=== PATIENT | female | born 1965 | race African-American/Black ===

== ENCOUNTER 2018-09-30 12:52 | Observation (INO) | payer BC, OTHER ==
--- NOTE | 2018-09-30 15:11 | PDOC ---
History of Present Illness - General Chief Complaint: Pain, Acute Stated Complaint: SENT BY PCP Time Seen by Provider: 09/30/18 14:09 History Source: Patient Exam Limitations: No Limitations - History of Present Illness Initial Comments: 09/30/18 14:58 53 yo female PMH of HTN, hypothyroidism, asthma and chronic back pain (takes naproxen for pain as needed, last use was prior to ) presents to the ED for generalized weakness, dizziness, dark tarry well formed stools and 2 episodes of bloody vomiting since 09/26. Pt states she has had some worsening epigastric pain over the past 2 weeks made worse right after eating. Pain is non radiating, well localized. Pt denies taking iron supplements. Denies F/C/N/V , changes in urinary habits, SOB or CP Past History - Past Medical History Allergies/Adverse Reactions: Allergies Allergy/AdvReac Type Severity Reaction Status Date / Time No Known Allergies Allergy Verified 09/30/18 13:22 Home Medications: Ambulatory Orders Albuterol Sulfate Inhaler - [Ventolin Hfa Inhaler -] 1 - 2 inh PO QID PRN Cyclobenzaprine HCl [Flexeril -] 10 mg PO TID PRN 09/30/18 Levothyroxine Sodium [Synthroid] mcg PO DAILY 09/30/18 Lisinopril [Prinivil] mg PO DAILY 09/30/18 Zolpidem Tartrate [Ambien] 10 mg PO HS 09/30/18 traMADol HCL [Ultram] 50 mg PO Q6H PRN 09/30/18 - Suicide/Smoking/Psychosocial Hx Smoking History: Unknown if ever smoked Review of Systems - Review of Systems Constitutional: No: Chills, Fever Respiratory: No: Shortness of Breath Cardiac (ROS): No: Chest Pain ABD/GI: Yes: Vomiting (2 bloody episodes), Other (black tarry stools for 4 days) . No: Constipated, Diarrhea : No: Burning, Dysuria, Flank Pain, Hematuria Musculoskeletal: No: Back Pain Neurological: Yes: Weakness (generalized). No: Headache, Numbness, Paresthesia , Unsteady Gait, Ataxia *Physical Exam - Vital Signs Last Vital Signs Temp Pulse Resp BP Pulse Ox 98.3 F 73 18 126/74 100 09/30/18 13:22 09/30/18 13:22 09/30/18 13:22 09/30/18 13:22 09/30/18 13:22 - Physical Exam General Appearance: Yes: Nourished, Appropriately Dressed. No: Apparent Distress HEENT: positive: EOMI Respiratory/Chest: positive: Lungs Clear, Normal Breath Sounds. negative: Accessory Muscle Use, Crackles, Rhonchi, Wheezing Cardiovascular: positive: Regular Rhythm, Regular Rate, S1, S2. negative: Edema , JVD, Murmur Vascular Pulses: Dorsalis-Pedis (R): 3+, Doralis-Pedis (L): 3+ Gastrointestinal/Abdominal: positive: Normal Bowel Sounds, Flat, Soft. negative : Distended, Guarding, Rebound, Tenderness Rectal Exam: positive: normal rectal tone, melena, heme positive stool. negative: hemorrhoids Musculoskeletal: negative: CVA Tenderness Extremity: positive: Normal Capillary Refill Integumentary: positive: Normal Color, Dry, Warm. negative: Cyanotic, Pale Neurologic: positive: Fully Oriented, Alert, Normal Mood/Affect, Normal Response , Motor Strength 5/5 Moderate Sedation - Procedure Monitoring Vital Signs: Procedure Monitoring Vital Signs Temperature 98.3 F 09/30/18 13:22 Pulse Rate 73 09/30/18 13:22 Respiratory Rate 18 09/30/18 13:22 Blood Pressure 126/74 09/30/18 13:22 O2 Sat by Pulse Oximetry (%) 100 09/30/18 13:22 ED Treatment Course - LABORATORY CBC & Chemistry Diagram: 09/30/18 15:00 09/30/18 15:00 Medical Decision Making - Medical Decision Making 09/30/18 15:43 53 yo female presents to the ED for black tarry stools and 2 episodes vomiting blood since 09/26 and epigastric pain after eating for 2 weeks pt admits to weakness and dizziness vitals: WNL Labs h/h: 05/26 + stool oclt NAD AOX3 DDX includes but is not limited to: peptic ulcer bleed, duodenal ulcer, CA 09/30/18 15:53 Pt resting comfortably while in the ED given protonix IV 09/30/18 16:[address] Ames who states pt is hemodynamically stable and able to be observed in the hospital and If EGD/colonoscopy is required it can be performed Wednesday. Will access in the ED Will admit pt to hospitalist for repeat h/h and obs *DC/Admit/Observation/Transfer Diagnosis at time of Disposition: Upper gastrointestinal bleed - Discharge Dispostion Condition at time of disposition: Stable Decision to Admit order: Yes - Referrals - Patient Instructions - Post Discharge Activity
--- NOTE | 2018-09-30 15:18 | PDOC ---
Attending Attestation - HPI HPI: This patient is a 53 year old female, with PMHx of HTN, Hypothyroidism, asthma , chronic back pain, who presents to the ED with 5 days of generalized weakness , melena and hematemesis. Patient states that since 09/26/18, she has had well- formed dark, tarry stools. She also has had 2 episodes of hematemesis. She also endorses 2-3 weeks of epigastric pain that is worse after eating right away. She came from urgent care and her stool occult was positive for blood. She states that she takes Naproxen weekly for her chronic back pain. 09/30/18 15:48 - Medical Decision Making Left a message for Dr. Zepeda for GI consult. 09/30/18 15:57 <Jami Kraft - Last Filed: 09/30/18 15:56> - Resident Resident Name: Emmett Olmos - ED Attending Attestation I have performed the following: I have examined & evaluated the patient, The case was reviewed & discussed with the resident, I agree w/resident's findings & plan, Exceptions are as noted - Physicial Exam PE: 09/30/18 15:59 Vitals: Triage Vital signs reviewed General Appearance: no acute distress, well nourished well developed, Head: Atraumatic, Neck: Supple;No Nucal rigidity Chest Wall: Nontender Cardiac: Regular rate and rhythym, no murmurs, no rubs, no gallops, Lungs: Clear to auscultation bilateral, good air movement bilaterally, Abdomen: Soft, non distended, normal bowel sounds, non tender to palpation Extremities: Full range of motion to all extremities, no cyanosis, clubbing, or edema Skin: Warm and dry, no rashes or lesions, no rash, no petechiae Psych: normal mood, normal affect - Medical Decision Making This patient is a 53 year old female, with PMHx of HTN, Hypothyroidism, asthma , chronic back pain, who presents to the ED with 5 days of generalized weakness , melena and hematemesis. Patient states that since 09/26/18, she has had well- formed dark, tarry stools. She also has had 2 episodes of hematemesis. She also endorses 2-3 weeks of epigastric pain that is worse after eating right away. She came from urgent care and her stool occult was positive for blood. She states that she takes Naproxen weekly for her chronic back pain. History examination consistent with upper GI bleed Likely secondary to patient's naproxen use. In symptomatology concerning for worsening anemia lightheadedness and dizziness we will admit to medicine for GI consultation and further management hemoglobin currently 8 but unknown what her baseline is. <John Peng - Last Filed: 09/30/18 16:01>
[2018-09-30 15:23] LABS: BASO % 0.8 % (0-2.0); EOS % 1.3 % (0-4.5); HEMATOCRIT 23.4 % (32.4-45.2); LYMPH % 36.5 % (8-40); MCH 32.2 pg (25.7-33.7); MCHC 33.9 g/dl (32.0-36.0); MEAN CELL VOLUME 94.7 fl (80-96); MEAN PLT VOLUME 8.9 fl (7.5-11.1); NEUT % 55.4 % (42.8-82.8); PLATELET COUNT 257 K/MM3 (134-434); RBC 2.48 M/mm3 (3.60-5.2); WHITE BLOOD COUNT 6.9 K/mm3 (4.0-10.0)
[2018-09-30] MEDS ORDERED: PANTOPRAZOLE SODIUM 40 MG VIAL IVPUSH ONE (15:46)
[2018-09-30 16:05] LABS: ALBUMIN 3.6 g/dl (3.4-5.0); ALK PHOS 70 U/L (45-117); ANION GAP 6 MMOL/L (8-16); BILIRUBIN,TOTAL 0.2 mg/dL (0.2-1); BLOOD UREA NITROGEN 14 mg/dL (7-18); CALCIUM 8.9 mg/dL (8.5-10.1); CHLORIDE 108 mmol/L (98-107); CO2 28 mmol/L (21-32); CREATININE 0.8 mg/dL (0.55-1.3); GLUCOSE,RANDOM 100 mg/dL (74-106); SGOT/AST 21 U/L (15-37); SGPT/ALT 30 U/L (13-61); SODIUM 142 mmol/L (136-145); TOT PROT 6.4 g/dl (6.4-8.2)
[2018-09-30 16:11] LABS: INR 0.9 (0.83-1.09); PROTHROMBIN TIME (PATIENT) 10.6 SEC (9.7-13.0)
[2018-09-30 16:14] LABS: ACTIVATED PTT 32.1 SECONDS (25.2-36.5)
[2018-09-30] MEDS ORDERED: PANTOPRAZOLE SODIUM 40 MG/100 ML BAG IVPB ONE ×2 (17:01→17:03)
[2018-09-30] MEDS ORDERED: PANTOPRAZOLE SODIUM 40 MG VIAL ONE (17:01)
[2018-09-30] MEDS: PANTOPRAZOLE SODIUM 80 MG in SODIUM CHLORIDE 100 ML IVPB SCH (17:26)
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
[2018-09-30] MEDS ORDERED: ALBUTEROL SO4 8 GM HFA INHALER IH PRN (18:30)
--- NOTE | 2018-09-30 18:39 | PN ---
Teaching Attending Note Name of Resident: Brandon Hayes ATTENDING PHYSICIAN STATEMENT I saw and evaluated the patient. I reviewed the resident's note and discussed the case with the resident. I agree with the resident's findings and plan as documented. CC: vomiting blood and dark stool HPI: She is a 53 Y/O F W obesity Chronic back pain and chronic NSAID use, non Etoh abuse, no HX of other previouse GIB and tendency to bleeding, P/W 1 month of intermittent Fresh blood in vomit and dark tary stool per rectum, last episode 4 days ago with no current active bleeding. PhEX: she is a morbidly obese F in no distress Last Vital Signs Temp Pulse Resp BP Pulse Ox 98.2 F 83 18 132/80 98 09/30/18 17:39 09/30/18 17:39 09/30/18 17:39 09/30/18 17:39 09/30/18 17:39 MMM No ocular discharge No nasal discharge CVS:S1S2 CTAB Abd:BS+ NT/ND EXT: no edema no sign of liver disease in exam Labs: CBCD WBC 6.9 K/mm3 (4.0-10.0) 09/30/18 15:00 RBC 2.48 M/mm3 (3.60-5.2) L 09/30/18 15:00 Hgb 8.0 GM/dL (10.7-15.3) L 09/30/18 15:00 Hct 23.4 % (32.4-45.2) L 09/30/18 15:00 MCV 94.7 fl (80-96) 09/30/18 15:00 MCHC 33.9 g/dl (32.0-36.0) 09/30/18 15:00 RDW 14.0 % (11.6-15.6) 09/30/18 15:00 Plt Count 257 K/MM3 (134-434) 09/30/18 15:00 MPV 8.9 fl (7.5-11.1) 09/30/18 15:00 CMP Sodium 142 mmol/L (136-145) 09/30/18 15:00 Potassium 4.0 mmol/L (3.5-5.1) 09/30/18 15:00 Chloride 108 mmol/L (98-107) H 09/30/18 15:00 Carbon Dioxide 28 mmol/L (21-32) 09/30/18 15:00 Anion Gap 6 MMOL/L (8-16) L 09/30/18 15:00 BUN 14 mg/dL (7-18) 09/30/18 15:00 Creatinine 0.8 mg/dL (0.55-1.3) 09/30/18 15:00 Creat Clearance w eGFR > 60 (>60) 09/30/18 15:00 Random Glucose 100 mg/dL (74-106) 09/30/18 15:00 Calcium 8.9 mg/dL (8.5-10.1) 09/30/18 15:00 Total Bilirubin 0.2 mg/dL (0.2-1) 09/30/18 15:00 AST 21 U/L (15-37) 09/30/18 15:00 ALT 30 U/L (13-61) 09/30/18 15:00 Alkaline Phosphatase 70 U/L (45-117) 09/30/18 15:00 Total Protein 6.4 g/dl (6.4-8.2) 09/30/18 15:00 Albumin 3.6 g/dl (3.4-5.0) 09/30/18 15:00 A&P: GIB: most likely in the setting of NSAID abuse: will get 2 IV lines, will get anohter CBC tonight and if stable no need for morning labs will C/W PPI GGT Will keep NPO lkely to get EGD tomorrow pending GI eval Counseled about the effects of chronic NSAID use and GIB Will C/W rest of home medication DVT ppxl scd Dispo: home pending EGD and GI recs
[2018-09-30] MEDS ORDERED: traMADol HCL 50 MG TABLET PO ONE (18:45)
--- NOTE | 2018-09-30 18:53 | CON.GI ---
Consult Consult Specialty:: GI Referred by:: Hospitalist Service Reason for Consultation:: Melena - History of Present Illness Chief Complaint: Melena History of Present Illness: 53F admitted through [facility] ER for evaluation of melena. She states that she had dark bowel movements on 09/26 with an episode of coffee ground emesis. Dark bowel movements persisted. She went to urgent care 09/29 and they advised she go to ER. The lives in the [place] but came to [facility] for the first time because every other hospital in the city was too busy. In the ER Hgb was 8. She was normotensive with normal pulse. it is unclear is orthostatics were checked. She was noted to be guaiac positive. She denies a history of anemia. her last dark BM was this morning. She described fatigue and lightheadedness over the last few days. She takes naproxyn 2 tabs every other day on average, for back and various joint pains. She believes that she had an EGD and colonoscopy in the past that were normal. When I was evaluating her she had just finished eating janneth crackers because she was hungry. She received protonix 40mg IVPB x 1 in ER. She denies history of liver disease. There is no family history of colorectal cancer or other GI malignancy. - History Source History Provided By: Patient Limitations to Obtaining History: No Limitations - Past Medical History TOOTH POLISHER: Yes: Other (Sciatica) Cardio/Vascular: Yes: HTN Pulmonary: Yes: Asthma Endocrine: Yes: Hypothyroidism - Past Surgical History Past Surgical History: Yes: Additional Surgical History: B/L Knee surgeries, b/l rotaor cuff repair - Alcohol/Substance Use Hx Alcohol Use: Yes (socially) History of Substance Use: reports: None - Smoking History Smoking history: Current every day smoker Have you smoked in the past 12 months: Yes - Social History Usual Living Arrangement: Alone ADL: Independent 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[place] History of Recent Travel: No Home Medications - Allergies Allergies/Adverse Reactions: Allergies Allergy/AdvReac Type Severity Reaction Status Date / Time No Known Allergies Allergy Verified 09/30/18 13:22 - Home Medications Home Medications: Ambulatory Orders Albuterol Sulfate Inhaler - [Ventolin Hfa Inhaler -] 1 - 2 inh PO QID PRN Cyclobenzaprine HCl [Flexeril -] 10 mg PO TID PRN 09/30/18 Levothyroxine Sodium [Synthroid] 150 mcg PO DAILY 09/30/18 Lisinopril [Prinivil] 10 mg PO DAILY 09/30/18 Zolpidem Tartrate [Ambien] 10 mg PO HS 09/30/18 traMADol HCL [Ultram] 50 mg PO Q6H PRN 09/30/18 Family Disease History - Family Disease History Family Disease History: Other: Father (: 91: unclear causes), Mother (Alive : 86: healthy), Brother (1, : [place]), Sister (2, healthy), Son (1, healthy) , Daughter (1, healthy) Other Family History: No family history of colorectal cancer or other GI malignancy Review of Systems - Review of Systems Cardiovascular: denies: Chest Pain Respiratory: denies: SOB Gastrointestinal: reports: Melena, Nausea, Vomiting Blood (Coffee ground vomiting 09/26). denies: Abdominal Pain, Constipation, Dysphagia, Rectal Bleeding Physical Exam-GI Vital Signs: Vital Signs Temperature 09/30/18 19:30 Pulse Rate 78 09/30/18 19:30 Respiratory Rate 18 09/30/18 19:30 Blood Pressure 132/68 09/30/18 19:30 O2 Sat by Pulse Oximetry (%) 97 on RA 09/30/18 19:30 Constitutional: Yes: Calm Eyes: No: Sclera Icterus Cardiovascular: Yes: Regular Rate and Rhythm. No: Murmur Respiratory: Yes: CTA Bilaterally Gastrointestinal Inspection: Yes: Scars (low pelvic surgical scar). 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 present: no external lesions, no masses, loose dark brown stool, guaiac +) Edema: No (No LE edema) Neurological: Yes: Alert, Oriented Labs: CBC, BMP 09/30/18 15:00 09/30/18 15:00 INR, PTT INR 0.90 (0.83-1.09) 09/30/18 15:00 Hepatic Panel Total Bilirubin 0.2 mg/dL (0.2-1) 09/30/18 15:00 AST 21 U/L (15-37) 09/30/18 15:00 ALT 30 U/L (13-61) 09/30/18 15:00 Alkaline Phosphatase 70 U/L (45-117) 09/30/18 15:00 Albumin 3.6 g/dl (3.4-5.0) 09/30/18 15:00 Problem List - Problems (1) Upper gastrointestinal bleed Assessment/Plan: Suspect that her chronic NSAID use will be the culprit, likley potentiating PUD. I discussed this with the patient. I explained that to evaluate further and to exclude alternate etiologies, EGD can be undertaken. We discussed potential risks of the procedure like but not limited to bleeding perforation requiring surgery to repair, infection, sedation medication effects all of which could be potentially life threatening. She has agreed to the procedure, the timing of which will be determined by her clinical course. if she remains stable, likely on 10/03. If need be this can always be done sooner as dictated by clinical course. The fact that her BUN is normal is a good sign. hopefully this was a remote bleed that has run it's own course: For now NPO except meds with small sips water. If H.H IV hydration PPI drip: protonix @ 8mg/hr Advised avoidance of NSAIDs moving forward Monitor serial CBC and for active GI bleeding. If active bleeding / change in hemodynamics transfer to ICU Dr. Acevedo will be covering the weekend Code(s): K92.2 - GASTROINTESTINAL HEMORRHAGE, UNSPECIFIED
[2018-09-30] MEDS ORDERED: MELATONIN 5 MG TABLETS PO ONE (21:00)
[2018-09-30] MEDS: SODIUM CHLORIDE 1,000 ML IV SCH (21:02)
[2018-09-30 22:00] LABS: HEMOGLOBIN 7.1 GM/dL (10.7-15.3); MCH 32.1 pg (25.7-33.7); MCHC 33.9 g/dl (32.0-36.0); MEAN CELL VOLUME 94.6 fl (80-96); MEAN PLT VOLUME 8.8 fl (7.5-11.1); PLATELET COUNT 243 K/MM3 (134-434); RBC 2.22 M/mm3 (3.60-5.2); RDW 14.1 % (11.6-15.6); WHITE BLOOD COUNT 6.6 K/mm3 (4.0-10.0)
[2018-09-30 22:56] VITALS: BMI 36.6
[2018-10-01 00:54] LABS: HEMATOCRIT 20.5 % (32.4-45.2); MCH 31.8 pg (25.7-33.7); MCHC 33.7 g/dl (32.0-36.0); MEAN CELL VOLUME 94.3 fl (80-96); MEAN PLT VOLUME 9.2 fl (7.5-11.1); PLATELET COUNT 232 K/MM3 (134-434); RBC 2.18 M/mm3 (3.60-5.2); WHITE BLOOD COUNT 6.5 K/mm3 (4.0-10.0)
[2018-10-01 01:04] LABS: HEMOGLOBIN 6.9 GM/dL (10.7-15.3)
[2018-10-01 09:31] LABS: BASO % 0.4 % (0-2.0); EOS % 1.7 % (0-4.5); HEMATOCRIT 25.4 % (32.4-45.2); HEMOGLOBIN 8.4 GM/dL (10.7-15.3); LYMPH % 44.7 % (8-40); MCH 31.1 pg (25.7-33.7); MEAN CELL VOLUME 94.1 fl (80-96); MEAN PLT VOLUME 8.7 fl (7.5-11.1); MONO % 6.7 % (3.8-10.2); NEUT % 46.5 % (42.8-82.8); PLATELET COUNT 223 K/MM3 (134-434); RDW 14.6 % (11.6-15.6); WHITE BLOOD COUNT 6.2 K/mm3 (4.0-10.0)
[2018-10-01 09:56] LABS: ANION GAP 6 MMOL/L (8-16); BLOOD UREA NITROGEN 13 mg/dL (7-18); CALCIUM 8.7 mg/dL (8.5-10.1); CHLORIDE 111 mmol/L (98-107); CO2 28 mmol/L (21-32); GLUCOSE,RANDOM 93 mg/dL (74-106); POTASSIUM 3.9 mmol/L (3.5-5.1); SODIUM 145 mmol/L (136-145)
[2018-10-01] MEDS ORDERED: LEVOTHYROXINE NA 88 MCG TABLET (FP) PO SCH (10:00)
[2018-10-01] MEDS: PANTOPRAZOLE SODIUM 80 MG in SODIUM CHLORIDE 100 ML IVPB SCH ×2 (11:34→20:22)
[2018-10-01] MEDS ORDERED: LEVOTHYROXINE NA 100 MCG TABLET (FP) ONE ×2 (11:37→22:24)
[2018-10-01] MEDS ORDERED: LEVOTHYROXINE NA 50 MCG TABLET (FP) ONE ×2 (11:37→22:24)
[2018-10-01] MEDS: LEVOTHYROXINE 100 MCG, LEVOTHYROXINE 50 MCG PO SCH (11:38)
[2018-10-01] MEDS: traMADol HCL 50 MG TABLET PO PRN ×2 (11:41→22:26)
--- NOTE | 2018-10-01 12:11 | PN ---
GI Progress Note Subjective: GI NOte ( covering [facility] GI service) : No vomiting. No melena; Hungry - Objective Vital Signs: Vital Signs Temperature 98.4 F 10/01/18 06:00 Pulse Rate 80 10/01/18 06:00 Respiratory Rate 20 10/01/18 06:00 Blood Pressure 140/85 10/01/18 06:00 O2 Sat by Pulse Oximetry (%) 98 10/01/18 04:37 Laboratory Tests 09/30/18 09/30/18 10/01/18 15:00 21:30 00:30 Hgb 8.0 L 7.1 L 6.9 L* BUN Creatinine 10/01/18 10/01/18 09:00 09:00 Hgb 8.4 L BUN 13 Creatinine 1.0 Constitutional: Calm ...Auscultate: Yes: Normoactive Bowel Sounds ...Palpate: Yes: Soft, Other (nontender) Labs: CBC, BMP 10/01/18 09:00 10/01/18 09:00 INR, PTT INR 0.90 (0.83-1.09) 09/30/18 15:00 Assessment/Plan Suspect NSAID ulcer or gastritis related bleeding Continue PPI Clear liquids For EGD Wednesday Problem List - Problems (1) Anemia associated with acute blood loss Code(s): D62 - ACUTE POSTHEMORRHAGIC ANEMIA (2) Melena Code(s): K92.1 - MELENA (3) Upper gastrointestinal bleed Code(s): K92.2 - GASTROINTESTINAL HEMORRHAGE, UNSPECIFIED
--- NOTE | 2018-10-01 13:27 | EKG ---
Test Reason : Blood Pressure : / mmHG Vent. Rate : 079 BPM Atrial Rate : 079 BPM P-R Int : 144 ms QRS Dur : 076 ms QT Int : 418 ms P-R-T Axes : 060 040 074 degrees QTc Int : 479 ms SINUS RHYTHM WITH PREMATURE ATRIAL COMPLEXES NONSPECIFIC T WAVE ABNORMALITY PROLONGED QT ABNORMAL ECG NO PREVIOUS ECGS AVAILABLE Confirmed by JOSSY GOODMAN MD ([id number]) on 10/01/2018 1:26:52 PM Referred By: Confirmed By:JOSSY GOODMAN MD
[2018-10-01 14:02] LABS: HEMATOCRIT 24.5 % (32.4-45.2); HEMOGLOBIN 8.8 GM/dL (10.7-15.3); MCH 33.3 pg (25.7-33.7); MCHC 36.1 g/dl (32.0-36.0); MEAN CELL VOLUME 92.2 fl (80-96); MEAN PLT VOLUME 8.5 fl (7.5-11.1); PLATELET COUNT 245 K/MM3 (134-434); RBC 2.66 M/mm3 (3.60-5.2); RDW 14.5 % (11.6-15.6); WHITE BLOOD COUNT 6.6 K/mm3 (4.0-10.0)
--- NOTE | 2018-10-01 15:59 | PN ---
Physical Exam: SUBJECTIVE: Patient seen and examined. She has no complaints at this time. states that is hungry OBJECTIVE: Vital Signs Period Temp Pulse Resp BP Sys/Corona Pulse Ox Last 24 Hr 98.0 F-98.9 F 74-85 18-20 129-144/60-85 97-98 GENERAL: The patient is awake, alert, and fully oriented, in no acute distress. HEAD: Normal with no signs of trauma. EYES: PERRL, extraocular movements intact, sclera anicteric, conjunctiva clear. No ptosis. ENT: Ears normal, nares patent, oropharynx clear without exudates, moist mucous membranes. NECK: Trachea midline, full range of motion, supple. LUNGS: Breath sounds equal, clear to auscultation bilaterally, no wheezes, no crackles, no accessory muscle use. HEART: Regular rate and rhythm, S1, S2 without murmur, rub or gallop. ABDOMEN: Soft, nontender, nondistended, normoactive bowel sounds, no guarding, no rebound, no hepatosplenomegaly, no masses. EXTREMITIES: 2+ pulses, warm, well-perfused, no edema. NEUROLOGICAL: Cranial nerves II through XII grossly intact. Normal speech, gait not observed. PSYCH: Normal mood, normal affect. SKIN: Warm, dry, normal turgor, no rashes or lesions noted Laboratory Results - last 24 hr 09/30/18 09/30/18 09/30/18 15:00 15:00 15:00 WBC RBC Hgb Hct MCV MCH MCHC RDW Plt Count MPV Absolute Neuts (auto) Neutrophils % Lymphocytes % Monocytes % Eosinophils % Basophils % Nucleated RBC % PT with INR 10.60 INR 0.90 PTT (Actin FS) 32.1 Sodium 142 Potassium 4.0 Chloride 108 H Carbon Dioxide 28 Anion Gap 6 L BUN 14 Creatinine 0.8 Creat Clearance w eGFR > 60 Random Glucose 100 Calcium 8.9 Total Bilirubin 0.2 AST 21 ALT 30 Alkaline Phosphatase 70 Total Protein 6.4 Albumin 3.6 Stool Occult Blood Blood Type O POSITIVE Antibody Screen Negative Crossmatch See Detail 09/30/18 09/30/18 09/30/18 15:00 17:45 21:30 WBC 6.6 RBC 2.22 L Hgb 7.1 L Hct 21.0 L MCV 94.6 MCH 32.1 MCHC 33.9 RDW 14.1 Plt Count 243 MPV 8.8 Absolute Neuts (auto) Neutrophils % Lymphocytes % Monocytes % Eosinophils % Basophils % Nucleated RBC % PT with INR INR PTT (Actin FS) Sodium Potassium Chloride Carbon Dioxide Anion Gap BUN Creatinine Creat Clearance w eGFR Random Glucose Calcium Total Bilirubin AST ALT Alkaline Phosphatase Total Protein Albumin Stool Occult Blood Positive Positive Blood Type Antibody Screen Crossmatch 10/01/18 10/01/18 10/01/18 00:30 02:08 09:00 WBC 6.5 RBC 2.18 L Hgb 6.9 L* Hct 20.5 L MCV 94.3 MCH 31.8 MCHC 33.7 RDW 14.0 Plt Count 232 MPV 9.2 Absolute Neuts (auto) Neutrophils % Lymphocytes % Monocytes % Eosinophils % Basophils % Nucleated RBC % PT with INR INR PTT (Actin FS) Sodium 145 Potassium 3.9 Chloride 111 H Carbon Dioxide 28 Anion Gap 6 L BUN 13 Creatinine 1.0 Creat Clearance w eGFR 58.00 Random Glucose 93 Calcium 8.7 Total Bilirubin AST ALT Alkaline Phosphatase Total Protein Albumin Stool Occult Blood Blood Type O POSITIVE Antibody Screen Crossmatch See Detail 10/01/18 10/01/18 09:00 13:40 WBC 6.2 6.6 RBC 2.70 L 2.66 L Hgb 8.4 L 8.8 L Hct 25.4 L D 24.5 L MCV 94.1 92.2 MCH 31.1 33.3 MCHC 33.0 36.1 H RDW 14.6 14.5 Plt Count 223 245 MPV 8.7 8.5 Absolute Neuts (auto) 2.9 Neutrophils % 46.5 Lymphocytes % 44.7 H D Monocytes % 6.7 Eosinophils % 1.7 Basophils % 0.4 Nucleated RBC % 0 PT with INR INR PTT (Actin FS) Sodium Potassium Chloride Carbon Dioxide Anion Gap BUN Creatinine Creat Clearance w eGFR Random Glucose Calcium Total Bilirubin AST ALT Alkaline Phosphatase Total Protein Albumin Stool Occult Blood Blood Type Antibody Screen Crossmatch Active Medications Generic Name Dose Route Start Last Admin Trade Name Freq PRN Reason Stop Dose Admin Albuterol Sulfate 2 puff 09/30/18 18:30 Ventolin Hfa Inhaler - IH Q6H PRN ASTHMA Pantoprazole Sodium 80 mg/ 100 mls @ 10 mls/hr 09/30/18 16:30 10/01/18 11:34 Sodium Chloride IVPB 10 mls/hr Q10H CHRISTOPHER Administration 8 MG/HR Sodium Chloride 1,000 mls @ 100 mls/hr 09/30/18 18:30 09/30/18 21:02 Normal Saline - IV 100 mls/hr ASDIR CHRISTOPHER Administration Levothyroxine Sodium 100 mcg/ 150 mcg 10/01/18 07:00 10/01/18 11:38 Levothyroxine Sodium 50 mcg PO 150 mcg DAILY@0700 CHRISTOPHER Administration Tramadol HCl 50 mg 10/01/18 11:18 10/01/18 11:41 Ultram - PO 50 mg Q6H PRN Administration PAIN LEVEL 6-10 ASSESSMENT/PLAN: 53 Y/O F W obesity, hypothyroidism, chronic back pain on NSAIDS, P/W 2 episodes of hematemesis and melena on 09/27 which has now resolved. GIB: no more episodes, CBC stable,VS stable, on PPI drip, plan for EGD on Wednesday , will keep on PPI drip for now and start on clear liquid diet. Hypothyroidism: C/W home levothyroxin back pain: will give tramadol at this time will need further PT and out patient management. DVT PPX: SCD Diet: clear liquid at this time Dispo: home likely on Wednesday after the EGD Visit type - Emergency Visit Emergency Visit: No - New Patient This patient is new to me today: No - Critical Care Critical Care patient: No - Discharge Referral Referred to [facility] Med P.C.: No
[2018-10-01] MEDS: SODIUM CHLORIDE 1,000 ML IV SCH (18:30)
[2018-10-01] MEDS ORDERED: PT OWN MED DRAWER 7, Y5N ONE (18:32)
[2018-10-02] MEDS ORDERED: MELATONIN 5 MG TABLETS ONE (01:51)
[2018-10-02] MEDS ORDERED: MELATONIN 5 MG TABLETS PO ONE ×2 (02:15→21:12)
[2018-10-02] MEDS: PANTOPRAZOLE SODIUM 80 MG in SODIUM CHLORIDE 100 ML IVPB SCH ×3 (06:07→19:20)
[2018-10-02] MEDS: LEVOTHYROXINE 100 MCG, LEVOTHYROXINE 50 MCG PO SCH (06:08)
[2018-10-02] MEDS: SODIUM CHLORIDE 1,000 ML IV SCH ×2 (06:08→19:19)
[2018-10-02 07:40] LABS: BASO % 0.4 % (0-2.0); EOS % 2.3 % (0-4.5); HEMATOCRIT 25.4 % (32.4-45.2); HEMOGLOBIN 8.2 GM/dL (10.7-15.3); LYMPH % 41.3 % (8-40); MCH 30.7 pg (25.7-33.7); MCHC 32.4 g/dl (32.0-36.0); MEAN CELL VOLUME 94.7 fl (80-96); MEAN PLT VOLUME 8.6 fl (7.5-11.1); MONO % 7.3 % (3.8-10.2); NEUT % 48.7 % (42.8-82.8); PLATELET COUNT 226 K/MM3 (134-434); RBC 2.68 M/mm3 (3.60-5.2); RDW 14.6 % (11.6-15.6); WHITE BLOOD COUNT 6.9 K/mm3 (4.0-10.0)
--- NOTE | 2018-10-02 10:54 | PN ---
GI Progress Note Subjective: GI NOte ( covering [facility] GI service): NO melena , in fact no BM . N o pain. Feels very gassy and bloated. - Objective Vital Signs: Vital Signs Temperature 98.2 F 10/02/18 05:51 Pulse Rate 76 10/02/18 05:51 Respiratory Rate 20 10/02/18 05:51 Blood Pressure 149/98 10/02/18 05:51 O2 Sat by Pulse Oximetry (%) 98 10/02/18 04:00 Laboratory Tests 10/01/18 10/01/18 10/02/18 00:30 13:40 07:30 Hgb 6.9 L* 8.8 L 8.2 L Constitutional: Anxious ...Auscultate: Yes: Hyperactive Bowel Sounds ...Palpate: Yes: Soft, Other (nontender) Labs: CBC, BMP 10/02/18 07:30 10/01/18 09:00 INR, PTT INR 0.90 (0.83-1.09) 09/30/18 15:00 Problem List - Problems (1) Anemia associated with acute blood loss Assessment/Plan: Bleeding appears to have stopped. Will given Mylanta to help get her bowels moving Code(s): D62 - ACUTE POSTHEMORRHAGIC ANEMIA (2) Melena Code(s): K92.1 - MELENA (3) Upper gastrointestinal bleed Code(s): K92.2 - GASTROINTESTINAL HEMORRHAGE, UNSPECIFIED (4) Constipated Code(s): K59.00 - CONSTIPATION, UNSPECIFIED
--- NOTE | 2018-10-02 10:54 | PN ---
Physical Exam: SUBJECTIVE: Patient seen and examined, she is in no distress, she has had no more episode of GIB or any other GI complaints since 4 days ago, still on PPI drip OBJECTIVE: Vital Signs Period Temp Pulse Resp BP Sys/Corona Pulse Ox Last 24 Hr 97.8 F-98.2 F 68-76 20-20 149-163/89-98 98-98 GENERAL: The patient is awake, alert, and fully oriented, in no acute distress. morbidly obese HEAD: Normal with no signs of trauma. EYES: PERRL, extraocular movements intact, sclera anicteric, conjunctiva clear. No ptosis. ENT: Ears normal, nares patent, oropharynx clear without exudates, moist mucous membranes. NECK: Trachea midline, full range of motion, supple. LUNGS: Breath sounds equal, clear to auscultation bilaterally, no wheezes, no crackles, no accessory muscle use. HEART: Regular rate and rhythm, S1, S2 without murmur, rub or gallop. ABDOMEN: Soft, nontender, nondistended, normoactive bowel sounds, no guarding, no rebound, no hepatosplenomegaly, no masses. EXTREMITIES: 2+ pulses, warm, well-perfused, no edema. NEUROLOGICAL: Cranial nerves II through XII grossly intact. Normal speech, gait not observed. PSYCH: Normal mood, normal affect. SKIN: Warm, dry, normal turgor, no rashes or lesions noted Laboratory Results - last 24 hr 10/01/18 10/02/18 13:40 07:30 WBC 6.6 6.9 RBC 2.66 L 2.68 L Hgb 8.8 L 8.2 L Hct 24.5 L 25.4 L MCV 92.2 94.7 MCH 33.3 30.7 MCHC 36.1 H 32.4 RDW 14.5 14.6 Plt Count 245 226 MPV 8.5 8.6 Absolute Neuts (auto) 3.4 Neutrophils % 48.7 Lymphocytes % 41.3 H Monocytes % 7.3 Eosinophils % 2.3 Basophils % 0.4 Nucleated RBC % 0 Active Medications Generic Name Dose Route Start Last Admin Trade Name Freq PRN Reason Stop Dose Admin Albuterol Sulfate 2 puff 09/30/18 18:30 Ventolin Hfa Inhaler - IH Q6H PRN ASTHMA Pantoprazole Sodium 80 mg/ 100 mls @ 10 mls/hr 09/30/18 16:30 10/02/18 06:07 Sodium Chloride IVPB 10 mls/hr Q10H CHRISTOPHER Administration 8 MG/HR Sodium Chloride 1,000 mls @ 100 mls/hr 09/30/18 18:30 10/02/18 06:08 Normal Saline - IV 100 mls/hr ASDIR CHRISTOPHER Administration Levothyroxine Sodium 100 mcg/ 150 mcg 10/01/18 07:00 10/02/18 06:08 Levothyroxine Sodium 50 mcg PO 150 mcg DAILY@0700 CHRISTOPHER Administration Tramadol HCl 50 mg 10/01/18 11:18 10/01/18 22:26 Ultram - PO 50 mg Q6H PRN Administration PAIN LEVEL 6-10 ASSESSMENT/PLAN: 53 Y/O F W obesity, hypothyroidism, chronic back pain on NSAIDS, P/W 2 episodes of hematemesis and melena on 09/27 which has now resolved. GIB: no more episodes, CBC stable,VS stable, on PPI drip, plan for EGD on Wednesday , will keep on PPI drip for now and tolerating clear liquid diet. Hypothyroidism: C/W home levothyroxin back pain: will give tramadol at this time will need further PT and out patient management. DVT PPX: SCD Diet: clear liquid at this time Dispo: home likely on Wednesday after the EGD Visit type - Emergency Visit Emergency Visit: No - New Patient This patient is new to me today: No - Critical Care Critical Care patient: No - Discharge Referral Referred to [facility] Med P.C.: No
[2018-10-02] MEDS: MAG HYDROX/AL HYDROX/SIMETH 30 ML UNIT-DOSE CUP PO SCH ×3 (11:55→22:47)
[2018-10-02] MEDS: traMADol HCL 50 MG TABLET PO PRN ×2 (14:45→22:48)
[2018-10-02] MEDS ORDERED: PT OWN MED DRAWER 7, Y5N ONE (15:24)
[2018-10-03] MEDS: PANTOPRAZOLE SODIUM 80 MG in SODIUM CHLORIDE 100 ML IVPB SCH ×2 (02:39→06:26)
[2018-10-03 06:26] LABS: BASO % 0.4 % (0-2.0); EOS % 2.9 % (0-4.5); HEMATOCRIT 26.8 % (32.4-45.2); HEMOGLOBIN 8.7 GM/dL (10.7-15.3); LYMPH % 41.8 % (8-40); MCH 30.8 pg (25.7-33.7); MCHC 32.5 g/dl (32.0-36.0); MEAN CELL VOLUME 94.8 fl (80-96); MEAN PLT VOLUME 8.7 fl (7.5-11.1); MONO % 8.5 % (3.8-10.2); NEUT % 46.4 % (42.8-82.8); PLATELET COUNT 255 K/MM3 (134-434); RBC 2.83 M/mm3 (3.60-5.2); RDW 14.8 % (11.6-15.6)
[2018-10-03] MEDS: LEVOTHYROXINE 100 MCG, LEVOTHYROXINE 50 MCG PO SCH (06:26)
[2018-10-03] MEDS: SODIUM CHLORIDE 1,000 ML IV SCH (06:27)
[2018-10-03] MEDS ORDERED: LIDOCAINE VISCOUS 2% ORAL/TOP 20 ML UNIT-DOSE CUP ONE (09:17)
[2018-10-03 09:49] VITALS: TEMP 98
[2018-10-03 10:10] VITALS: BP 161/70
[2018-10-03 10:20] VITALS: PULSE 68
--- NOTE | 2018-10-03 10:57 | PN ---
Physical Exam: SUBJECTIVE: Patient seen and examined at bedside this morning. No acute overnight events. She is NPO for endoscopy today. Denies abdominal pain, nausea , vomiting, hematemasis, hematochezia, melanotic stools. She has not had a bowel movement since she has been admitted to hospital. OBJECTIVE: Vital Signs Period Temp Pulse Resp BP Sys/Corona Pulse Ox Last 24 Hr 97.8 F-98.5 F 68-80 18-20 142-161/68-98 2-100 GENERAL: Awake, alert, and fully oriented, in no acute distress. HEAD: Normal with no signs of trauma. EYES: Pupils equal, round and reactive to light, extraocular movements intact, sclera anicteric, conjunctiva clear. No lid lag. EARS, NOSE, THROAT: Ears normal, nares patent, oropharynx clear without exudates. Dry mucous membranes. NECK: Normal range of motion, supple without lymphadenopathy, JVD, or masses. LUNGS: Breath sounds equal, clear to auscultation bilaterally. No wheezes, and no crackles. No accessory muscle use. HEART: Regular rate and rhythm, normal S1 and S2 without murmur, rub or gallop. ABDOMEN: Obese. Soft, nontender to light and deep palpation, not distended. Normoactive bowel sounds X4 quadrants. No guarding, no rebound tenderness. No hepatomegaly palpated or percussed. RECTAL: Good anal sphincter tone. No external or internal hemorrhoids palpated. No hard stool palpated within rectal vault. Streak of dark black stool without ilda red blood on gloved finger. Sample sent for occult blood testing. MUSCULOSKELETAL: Normal range of motion at all joints. No bony deformities or tenderness. No CVA tenderness. UPPER EXTREMITIES: 2+ radial pulses, warm b/l, well-perfused. No cyanosis. No clubbing. No peripheral edema. LOWER EXTREMITIES: 2+ dorsalis pedis pulses b/l, warm, well-perfused. No calf tenderness. No peripheral edema b/l. NEUROLOGICAL: Cranial nerves II-XII intact. Normal speech. Normal gait. PSYCHIATRIC: Cooperative. Good eye contact. Appropriate mood and affect. SKIN: Warm, dry. Horizontal scar from prior noted well healed, clean, dry, not draining. Laboratory Results - last 24 hr 10/03/18 05:35 WBC 6.0 RBC 2.83 L Hgb 8.7 L Hct 26.8 L MCV 94.8 MCH 30.8 MCHC 32.5 RDW 14.8 Plt Count 255 MPV 8.7 Absolute Neuts (auto) 2.8 Neutrophils % 46.4 Lymphocytes % 41.8 H Monocytes % 8.5 Eosinophils % 2.9 Basophils % 0.4 Nucleated RBC % 0 Active Medications Generic Name Dose Route Start Last Admin Trade Name Freq PRN Reason Stop Dose Admin Albuterol Sulfate 2 puff 09/30/18 18:30 Ventolin Hfa Inhaler - IH Q6H PRN ASTHMA Pantoprazole Sodium 80 mg/ 100 mls @ 10 mls/hr 09/30/18 16:30 10/03/18 06:26 Sodium Chloride IVPB Not Given Q10H CHRISTOPHER 8 MG/HR Sodium Chloride 1,000 mls @ 100 mls/hr 09/30/18 18:30 10/03/18 06:27 Normal Saline - IV 100 mls/hr ASDIR CHRISTOPHER Administration Levothyroxine Sodium 100 mcg/ 150 mcg 10/01/18 07:00 10/03/18 06:26 Levothyroxine Sodium 50 mcg PO Not Given DAILY@0700 CHRISTOPHER Lisinopril 10 mg 10/03/18 11:00 Prinivil PO DAILY CHRISTOPHER Tramadol HCl 50 mg 10/01/18 11:18 10/02/18 22:48 Ultram - PO 50 mg Q6H PRN Administration PAIN LEVEL 6-10 ASSESSMENT/PLAN:
[2018-10-03] MEDS ORDERED: LISINOPRIL 10 MG TABLET (FP) PO SCH (11:00)
--- NOTE | 2018-10-03 12:35 | PN ---
Teaching Attending Note Name of Resident: Brandon Hayes ATTENDING PHYSICIAN STATEMENT I saw and evaluated the patient. I reviewed the resident's note and discussed the case with the resident. I agree with the resident's findings and plan as documented. SUBJECTIVE: she has had no more GIB episodes, has undergone EGD this morning pending final report by GI, but they stated that she can be started on po diet and DCed this afternoon OBJECTIVE: in no distress MMM Obese CVS: s1s2 CTAB ASSESSMENT AND PLAN:
[2018-10-03] MEDS: traMADol HCL 50 MG TABLET PO PRN (13:14)
--- NOTE | 2018-10-03 14:17 | DS ---
Physical Exam: SUBJECTIVE: Patient seen and examined at bedside this morning. No acute overnight events. She denies abdominal pain, nausea, vomiting, hematemasis, hematochezia, melanotic stools OBJECTIVE: Vital Signs Period Temp Pulse Resp BP Sys/Corona Pulse Ox Last 24 Hr 97.8 F-98.5 F 68-80 18-20 142-161/68-98 2-100 PHYSICAL EXAM GENERAL: Awake, alert, and fully oriented, in no acute distress. HEAD: Normal with no signs of trauma. EYES: Pupils equal, round and reactive to light, extraocular movements intact, sclera anicteric. EARS, NOSE, THROAT: Oropharynx clear without exudates. Moist mucous membranes. NECK: Supple without lymphadenopathy No JVD. LUNGS: Breath sounds equal, clear to auscultation bilaterally. No wheezes, and no crackles. No accessory muscle use. HEART: Regular rate and rhythm, normal S1 and S2 without murmur, rub or gallop. ABDOMEN: Obese. Soft, nontender to light and deep palpation, not distended. Normoactive bowel sounds X4 quadrants. No guarding, no rebound tenderness. No hepatomegaly palpated or percussed. MUSCULOSKELETAL: Normal range of motion at all joints. No bony deformities or tenderness. UPPER EXTREMITIES: 2+ radial pulses, warm b/l, well-perfused. No cyanosis. No clubbing. No peripheral edema. LOWER EXTREMITIES: 2+ dorsalis pedis pulses b/l, warm, well-perfused. No calf tenderness. No peripheral edema B/L. NEUROLOGICAL: Cranial nerves II-XII intact. Normal speech. Normal gait. PSYCHIATRIC: Cooperative. Good eye contact. Appropriate mood and affect. SKIN: Warm, dry. Horizontal scar from prior noted well healed, clean, dry, not draining. LABS Laboratory Results - last 24 hr 10/03/18 05:35 WBC 6.0 RBC 2.83 L Hgb 8.7 L Hct 26.8 L MCV 94.8 MCH 30.8 MCHC 32.5 RDW 14.8 Plt Count 255 MPV 8.7 Absolute Neuts (auto) 2.8 Neutrophils % 46.4 Lymphocytes % 41.8 H Monocytes % 8.5 Eosinophils % 2.9 Basophils % 0.4 Nucleated RBC % 0 HOSPITAL COURSE: Date of Admission:09/30/18 Date of Discharge: 10/03/18 Patient is a 53 year old female with history of chronic back pain (treated with NSAIDS on and off for past 10 years), hypertension, hypothyroidism, asthma, presents with complaint of hematemesis, and melanotic stools that began 5 days prior to presentation. Patient was started on protonix drip, and IV fluids. Hb 8.0 at admission (uncertain baseline), dropped to 6.9 that night and she was transfused 1 unit PRBCs. Endoscopy showed 5-9mm clean based, non bleeding ulcer. Patient had no episodes of nausea, vomiting, hematochezia,melanotic stools while hospitalized. Patient tolerated diet, and was discharged home to continue home medications- abstaining from NSAIDS, and begin taking Protonix 40mg daily. To follow up with primary care provider and lieutenant colonel. Minutes to complete discharge: 35 Discharge Summary Reason For Visit: UPPER GASTROINTESTINAL HEMORRHAGE Current Active Problems Anemia associated with acute blood loss (Acute) Constipated (Acute) Melena (Acute) Upper gastrointestinal bleed (Acute) Condition: Stable - Instructions Diet, Activity, Other Instructions: You were admitted due to complaint of vomiting with blood, and dark colored stools You were evaluated by the lieutenant colonel, and an endoscopy was performed showing a small ulcer that likely caused the bleeding. Continue taking your home medications as directed. You will begin taking Protonix 40mg daily. DO NOT take any NSAID medications as they may contribute to the bleeding. Follow a low sodium diet. Please see the instructions attached. Follow up with your primary care provider within two to three days of discharge. Follow up with the lieutenant colonel (Dr. Zepeda) within one week of discharge. Please return to the nearest emergency department if you experience any worsening symptoms, fevers, chills, shortness of breath, chest pain, palpitations, abdominal pain, nausea, vomiting, diarrhea. Referrals: Wally Zepeda DO [Staff Physician] - 1 Week Disposition: HOME - Home Medications Comprehensive Discharge Medication List: Ambulatory Orders Albuterol Sulfate Inhaler - [Ventolin HFA Inhaler -] 1 - 2 inh PO QID PRN Cyclobenzaprine HCl [Flexeril -] 10 mg PO TID PRN 09/30/18 Levothyroxine Sodium [Synthroid] 150 mcg PO DAILY 09/30/18 Lisinopril [Prinivil] 10 mg PO DAILY 09/30/18 Zolpidem Tartrate [Ambien] 10 mg PO HS 09/30/18 Amlodipine Besylate/Benazepril [Lotrel 5-20 mg Capsule] 1 each PO DAILY Pantoprazole Sodium [Protonix] 40 mg PO DAILY 30 Days #30 tablet. 10/03/18 This patient is new to me today: No Emergency Visit: Yes ED Registration Date: 09/30/18 Care time: The patient presented to the Emergency Department on the above date and was hospitalized for further evaluation of their emergent condition. Critical Care patient: No - Discharge Referral Referred to [facility] Med P.C.: No
--- NOTE | 2018-10-05 12:02 | PATH ---
Surgical Pathology Report Patient Name: ADITHYA STEPHENS Med. Rec. #: [id number] /Age/Gender: 1965 (Age: 53) / F Account: [id number] Location: [facility] MED/SURG Taken: 10/03/2018 Received: 10/03/2018 Reported: 10/05/2018 Physicians: MD Ashly Mckinley MD Specimen(s) Received A: BX ANTRUM B: BX BODY OF STOMACH Clinical History GI bleeding Postoperative diagnosis: Hiatal hernia, pyloric channel ulcer Final Diagnosis A. STOMACH, ANTRUM, BIOPSY: GASTRIC ANTRAL MUCOSA WITH MILD CHRONIC GASTRITIS. IMMUNOHISTOCHEMICAL STAIN FOR H. PYLORI IS NEGATIVE. B. STOMACH, BODY, BIOPSY: GASTRIC BODY MUCOSA WITH MILD CHRONIC GASTRITIS. IMMUNOHISTOCHEMICAL STAIN FOR H. PYLORI IS NEGATIVE. Electronically Signed Maryuri James M.D. Gross Description A. Received in formalin, labeled "biopsy antrum" are 2 schneider, irregular portions of soft tissue measuring 0.1 and 0.5 cm. in greatest dimension. The specimens are submitted in toto in one cassette. B. Received in formalin, labeled "biopsy body of stomach" are 2 schneider, irregular portions of soft tissue measuring 0.2 and 0.3 cm. in greatest dimension. The specimens are submitted in toto in one cassette. 10/03/2018 saudi10/03/2018
== END 2018-10-03 14:53 | disposition home or self-care (01) ==
LOC: JER 12:52 → JERBED 16:57 → UNDOADMOB 18:37 → J8W 19:48
PROVIDERS: ADMIT Internal Medicine; ATTEND Internal Medicine
PROC: 0DB68ZX Excision of Stomach, Via Natural or Artificial Opening Endoscopic, Diagnostic (ICD-10-PCS; principal; 2018-09-30)
PROC: 3E033GC Introduction of Other Therapeutic Substance into Peripheral Vein, Percutaneous Approach (ICD-10-PCS; 2018-09-30)
PROC: 3E0337Z Introduction of Electrolytic and Water Balance Substance into Peripheral Vein, Percutaneous Approach (ICD-10-PCS; 2018-09-30)
DX: K92.2 Gastrointestinal hemorrhage, unspecified (principal); D62 Acute posthemorrhagic anemia; K92.1 Melena; K59.00 Constipation, unspecified; I10 Essential (primary) hypertension; E03.9 Hypothyroidism, unspecified; J45.909 Unspecified asthma, uncomplicated; M54.9 Dorsalgia, unspecified; G89.29 Other chronic pain; E66.01 Morbid (severe) obesity due to excess calories; Z68.36 Body mass index [BMI] 36.0-36.9, adult; K44.9 Diaphragmatic hernia without obstruction or gangrene; K26.9 Duodenal ulcer, unspecified as acute or chronic, without hemorrhage or perforation
CPT/HCPCS: 36415; 36430; 71046-TC-FY; 80048; 80053; 82272; 85025; 85027; 85610; 85730; 86850; 86900; 86901; 86922; 88305-TC; 88342-TC; 93005; 93010; 99284-25; G0378; J7030; P9038; P9058

== ENCOUNTER 2018-11-29 10:35 | Day surgery (SDC) | payer BC, OTHER ==
[2018-11-29 11:36] VITALS: BMI 37.0
[2018-11-29 12:34] VITALS: TEMP 97.9
[2018-11-29 13:00] VITALS: PULSE 79
[2018-11-29 13:40] VITALS: BP 159/90
--- NOTE | 2018-11-30 17:26 | PATH ---
Surgical Pathology Report Patient Name: ADITHYA STEPHENS [facility]. Rec. #: [id number] /Age/Gender: 1965 (Age: 53) / F Account: [id number] Location: [facility]-ENDOSCOPY Taken: 11/29/2018 Received: 11/29/2018 Reported: 11/30/2018 Physicians: Damon Zepeda D.O. Specimen(s) Received A: ILEOCECAL VALVE, POLYP, BIOPSY B: SIGMOID COLON, POLYP, BIOPSY C: SIGMOID COLON, POLYP #2, BIOPSY Clinical History Screening Postoperative diagnosis: Colon polyps, diverticulosis, hemorrhoids Final Diagnosis A. ILEOCECAL VALVE, POLYP, BIOPSY: POLYPOID COLONIC MUCOSA WITH FOCAL SUPERFICIAL HYPERPLASTIC FEATURES. B. SIGMOID COLON, POLYP, BIOPSY: POLYPOID COLONIC MUCOSA WITH SUPERFICIAL HYPERPLASTIC FEATURES AND SMALL LYMPHOID AGGREGATE. C. SIGMOID COLON, POLYP #2, BIOPSY: HYPERPLASTIC POLYP. Electronically Signed Maryuri James M.D. Gross Description A. Received in formalin, labeled "ileocecal valve polyp biopsy" is a schneider, irregular portion of soft tissue measuring 0.3 cm. in greatest dimension. The specimen is submitted in toto in one cassette. B. Received in formalin, labeled "sigmoid colon polyp biopsy" are 2 schneider, irregular portions of soft tissue measuring 0.3 and 0.4 cm. in greatest dimension. The specimens are submitted in toto in one cassette. C. Received in formalin, labeled "sigmoid colon polyp biopsy #2" is a schneider, irregular portion of soft tissue measuring 0.4 cm. in greatest dimension. The specimen is submitted in toto in one cassette. DL/11/29/2018 saudi11/29/2018
== END 2018-11-29 13:40 | disposition home or self-care (01) ==
LOC: JASU-ENDO 10:35
PROVIDERS: ATTEND Internal Medicine Gastroenterology
PROC: 0DBN8ZX Excision of Sigmoid Colon, Via Natural or Artificial Opening Endoscopic, Diagnostic (ICD-10-PCS; 2018-11-29)
PROC: 0DBC8ZX Excision of Ileocecal Valve, Via Natural or Artificial Opening Endoscopic, Diagnostic (ICD-10-PCS; principal; 2018-11-29 11:30)
DX: Z12.11 Encounter for screening for malignant neoplasm of colon (principal); D12.5 Benign neoplasm of sigmoid colon; K57.30 Diverticulosis of large intestine without perforation or abscess without bleeding; K64.8 Other hemorrhoids
CPT/HCPCS: 84703; 88305-TC

== ENCOUNTER 2019-04-09 20:27 | Emergency (ER) | payer BC, OTHER ==
[2019-04-09 20:33] VITALS: BP 197/99; PULSE 78; TEMP 98.5; BMI 38.0
--- NOTE | 2019-04-09 21:20 | PDOC ---
History of Present Illness - General Chief Complaint: Eye Problem Stated Complaint: DRAINING CIST/LEFT EYE Time Seen by Provider: 04/09/19 21:13 - History of Present Illness Initial Comments: 04/09/19 21:17 54-year-old female without comorbidities which she denies presents for evaluation of left I upper lid swelling times one week which began to drain today. Past History - Past Medical History Allergies/Adverse Reactions: Allergies Allergy/AdvReac Type Severity Reaction Status Date / Time No Known Allergies Allergy Verified 04/09/19 20:33 Home Medications: Ambulatory Orders Albuterol Sulfate Inhaler - [Ventolin HFA Inhaler -] 1 - 2 inh PO QID PRN Cyclobenzaprine HCl [Flexeril -] 10 mg PO TID PRN 09/30/18 Levothyroxine Sodium [Synthroid] 150 mcg PO DAILY 09/30/18 Amlodipine Besylate/Benazepril [Lotrel 5-20 mg Capsule] 1 each PO DAILY Pantoprazole Sodium [Protonix] 40 mg PO DAILY 30 Days #30 tablet.dr 10/03/18 Erythromycin 0.5% Eye Ointment [Erythromycin 0.5% Eye Ointment -] 1 applic OS DAILY 7 Days #1 tube 04/09/19 Asthma: Yes (NO RECENT ATTACK) COPD: No GI Disorders: Yes (PUD(DUODENAL BULB ULCER 10/03/18)) HTN: Yes Thyroid Disease: Yes (HYPOTHYROIDISM) - Surgical History Orthopedic Surgery: Yes (bilateral meniscal/ bilateral rotator cuff) - Suicide/Smoking/Psychosocial Hx Smoking History: Never smoked Have you smoked in the past 12 months: Yes Number of Cigarettes Smoked Daily: 7 'Breaking Loose' booklet given: 11/29/18 Hx Alcohol Use: Yes (socially) Drug/Substance Use Hx: No Substance Use Type: None Hx Substance Use Treatment: No Review of Systems - Review of Systems HEENTM: Yes: See HPI *Physical Exam - Vital Signs Last Vital Signs Temp Pulse Resp BP Pulse Ox 98.5 F 78 18 197/99 H 97 04/09/19 20:30 04/09/19 20:30 04/09/19 20:30 04/09/19 20:30 04/09/19 20:30 - Physical Exam Comments: 04/09/19 21:17 Eyelid upper lid erythema with the postulate which is draining purulent material. There is swelling. Conjunctiva is normal without injection Medical Decision Making - Medical Decision Making 04/09/19 21:18 This is a large external hordeolum which is draining. I've encouraged her to apply warm compresses have her follow-up with ophthalmology tomorrow without fail instructions to return to the emergency room should symptoms worsen. She is on by mouth Keflex given to her from an urgent care facility. *DC/Admit/Observation/Transfer Diagnosis at time of Disposition: External hordeolum - Discharge Dispostion Disposition: HOME Condition at time of disposition: Stable Decision to Admit order: No - Prescriptions Prescriptions: Erythromycin 0.5% Eye Ointment [Erythromycin 0.5% Eye Ointment -] 1 applic OS DAILY 7 Days #1 tube - Referrals Referrals: Bro Fuentes [Non Staff, Medical] - Steven Dove [Non Staff, Medical] - Steven Boston MD [Staff Physician] - Rajiv Julien MD [Staff Physician] - Bolivar Hummel [Non Staff, Medical] - Titus Patrick MD [Staff Physician] - Di Reyes MD [Staff Physician] - Rajiv Theodore MD [Non Staff, Medical] - Reed Schmidt MD, MD [Non Staff, Medical] - Yosvany Kohli [Non Staff, Medical] - Andrez Urban MD [Non Staff, Medical] - Ijeoma Ortiz DO [Non Staff, Medical] - Adriana Panda MD [Non Staff, Medical] - - Patient Instructions Printed Discharge Instructions: DI for Hordeolum, Hordeolum Additional Instructions: Please use antibiotic ointment as directed. Warm compresses tear I multiple times a day encouraging the area to drain. Return to the emergency room for worsening symptoms and follow-up with ophthalmology tomorrow without fail. A list of local ophthalmologists were given to you. - Post Discharge Activity
== END 2019-04-09 21:32 | disposition home or self-care (01) ==
LOC: JERFT 20:27
DX: H00.014 Hordeolum externum left upper eyelid (principal); I10 Essential (primary) hypertension; E03.9 Hypothyroidism, unspecified; Z87.891 Personal history of nicotine dependence
CPT/HCPCS: 99281-25